=== PATIENT | female | born 1990 | race Asian ===

== ENCOUNTER → 2016-12-24 | Outpatient (CLI) | payer OTHER ==
[~2016-12-24] MED LIST: HYDR-3812 PO; IBUP-1773 PO; ONDA4TAB10
--- NOTE | 2016-12-24 10:57 | Diagnostic Imaging Report ---
First trimester OB ultrasound. INDICATION: Dating. FINDINGS: There is a normal-appearing single intrauterine . An embryo is seen with cardiac activity at 153 beats per minute. The crown-rump length is at 11 weeks and 2 days. GALLITO is 07/13/2017. There is no subchorionic hemorrhage identified. The adnexa are not seen, probably obscured by bowel gas. IMPRESSION: Live single intrauterine . Dictated by: Dictated on workstation # [id number]
== END ==
LOC: RAD 09:57
PROVIDERS: ATTEND Family Medicine
DX: Z36.87 Encounter for antenatal screening for uncertain dates (principal); Z3A.11 11 weeks gestation of pregnancy
CPT/HCPCS: 76801